=== PATIENT | male | born 1945 | race Caucasian/White ===

== ENCOUNTER 2018-03-09 01:09 | Emergency (ER) | payer MEDICARE, BC ==
[~2018-03-09] VITALS: Ht 188 cm; Wt 95.3 kg
--- NOTE | 2018-03-09 01:39 | NUR ---
MSE COMPLETED. PT D/C'D HOME, ACI GIVEN, PT AMBULATED W/O DIFF/TOOK ALL BELONGINGS.
[2018-03-09 01:40] VITALS: BP 152/71
== END 2018-03-09 01:41 | disposition home or self-care (01) ==
LOC: ER 01:13
DX: R21 Rash and other nonspecific skin eruption (principal); I10 Essential (primary) hypertension
CPT/HCPCS: 99281; A4663

== ENCOUNTER 2021-05-08 21:49 | Inpatient (IN) | payer MEDICARE, BC ==
[~2021-05-08] VITALS: Ht 185.4 cm; Wt 90.7 kg
[2021-05-08] MEDS ORDERED: NEOMY/BACITRA/POLYMYXIN B OINT UD PACKET TP ONE ×2 (22:30→22:50)
[2021-05-08 22:37] LABS: HEMATOCRIT 40.8 % (36.7-47.1); MEAN CORPUSCULAR VOLUME 84.6 fL (73.0-96.2); PLATELET COUNT (AUTO) 147 K/uL (152-348)
[2021-05-08 22:45] LABS: POTASSIUM 4.2 mmol/L (3.5-5.1)
[2021-05-08 22:51] LABS: BILIRUBIN,DIRECT 0.1 mg/dL (0.0-0.2); BILIRUBIN,TOTAL 0.4 mg/dL (0.2-1.0); TOTAL PROTEIN, SERUM 6.8 g/dL (6.4-8.2)
[2021-05-08 23:28] LABS: *BILIRUBIN,URIN NEGATIVE (NEGATIVE); *BLOOD, URINE TRACE (NEGATIVE); *CLARITY,URINE CLEAR (CLEAR); *COLOR,URINE YELLOW (YELLOW); *KETONES,URINE NEGATIVE (NEGATIVE); *UROBILINOGEN,URINE 0.2 E.U./dl (NORMAL); LEUKOCYTE ESTERASE ,URINE TRACE (NEGATIVE); NITRITE, URINE NEGATIVE (NEGATIVE); PH,URINE 5.5 (5.0-8.0); UGLUCOSE NEGATIVE (NEGATIVE)
[2021-05-08 23:37] LABS: BACTERIA,URINE NONE SEEN /HPF (NONE SEEN); RBC,URINE 0-3 /HPF (0-3); SQUAMOUS EPITHELIAL CELL,UR NONE SEEN /HPF (NONE SEEN); WBC,URINE 0-3 /HPF (0-3)
--- NOTE | 2021-05-09 02:11 | NUR ---
pt admitted to tele, transfer to floor pending on bed availability.
[2021-05-09] MEDS ORDERED: RAMI10CA69 PO (02:12)
[2021-05-09] MEDS ORDERED: metoprolol PO ×2 (02:12)
[2021-05-09] MEDS ORDERED: APIX5TAB PO (02:12)
[2021-05-09] MEDS ORDERED: ROSU20TA2 PO (02:12)
[2021-05-09] MEDS ORDERED: ESCI20TA PO (02:12)
[2021-05-09] MEDS ORDERED: Z GUARD REMEDY PASTE 57 GM TUBE TOP PRN (02:15)
[2021-05-09] MEDS ORDERED: ONDANSETRON 4 MG/2 ML VIAL IV PRN (02:15)
[2021-05-09] MEDS ORDERED: ACETAMINOPHEN 325 MG TABLET PO PRN (02:15)
[2021-05-09] MEDS ORDERED: MAGNESIUM HYDROXIDE 30 ML LIQUID UDC PO PRN (02:15)
--- NOTE | 2021-05-09 03:54 | NUR ---
pt care endorsed to sundeep Nieto. pt resting, arousable, no sign of distress.
[2021-05-09] MEDS ORDERED: METOPROLOL TARTRATE 50 MG TABLET PO ONE (04:30)
[2021-05-09] MEDS ORDERED: METOPROLOL TARTRATE 50 MG TABLET ONE (04:33)
[2021-05-09 05:56] LABS: BAND % (MANUAL) 6 % (0-10); EOSINOPHILS % (MANUAL) 2 % (0-8); LYMPHOCYTES % (MANUAL) 14 % (20-40); MONOCYTES % (MANUAL) 4 % (2-10); NEUTROPHILS % (MANUAL) 74 % (42-75)
--- NOTE | 2021-05-09 10:10 | NUR ---
PT WAS TRANSFERED TO TELEMETRY ROOM. REPORT WAS GIVEN TO RIDES ATTENDANT .
--- NOTE | 2021-05-09 10:11 | NUR ---
RECEIVED PATIENT FROM ED 75 YEARS OLD MALE BY W/CHAIR TO ROOM 329 WITH DX OF MECHANICAL FALL PLACED INTO BED FIXED AND MADE COMFORTABLE PATIENT IS ALERT AND ORIENTED DENIES DISCOMFORTS AT THIS TIME ORIENTED TO ROOM AND FACILITY PROTOCOL CALL LIGHTS AND PERSONAL BELONGINGS ARE WITHIN EASY REACH MADE COMFORTABLE WILL CONTINUE TO OBSERVE.
--- NOTE | 2021-05-09 11:22 | NUR ---
NEW ORDERS NOTED FROM DR MAHER AT THIS TIME
[2021-05-09 11:47] VITALS: BP 135/60
[2021-05-09 12:00] LABS: HEMATOCRIT 40.6 % (36.7-47.1); MEAN CORPUSCULAR HEMOGLOBIN 27.9 uug (23.8-33.4); MEAN CORPUSCULAR VOLUME 84.6 fL (73.0-96.2); PLATELET COUNT (AUTO) 143 K/uL (152-348)
[2021-05-09 12:05] LABS: CREATININE 0.8 mg/dL (0.6-1.3)
[2021-05-09 12:18] LABS: BILIRUBIN,TOTAL 0.6 mg/dL (0.2-1.0); PHOSPHOROUS 3.9 mg/dL (2.5-4.9); TOTAL PROTEIN, SERUM 6.7 g/dL (6.4-8.2)
[2021-05-09 12:19] LABS: THYROID STIMULATING HORMONE 1.152 mIU/mL (0.358-3.740)
[2021-05-09] MEDS: ESCITALOPRAM OXALATE 10 MG TABLET PO SCH (13:28)
--- NOTE | 2021-05-09 14:06 | NUR ---
DR MAHER HERE TO SEE PATIENT WITH NO NEW ORDERS AT THIS TIME
[2021-05-09 15:49] VITALS: BP 143/60
[2021-05-09 16:54] LABS: BAND % (MANUAL) 6 % (0-10); EOSINOPHILS % (MANUAL) 3 % (0-8); LYMPHOCYTES % (MANUAL) 13 % (20-40); METAMYELOCYTES % 3 % (0-1); MONOCYTES % (MANUAL) 15 % (2-10); NEUTROPHILS % (MANUAL) 60 % (42-75)
--- NOTE | 2021-05-09 18:00 | NUR ---
PATIENT MOVED TO ROOM 305 IN STABLE CONDITION DENIES DIZZY SPELLS ALERT ORIENTED AND COOPERATIVE AMBULATORY WITH STEADY GAIT TELE SR WITH NO ECTOPY NOT IN DISTRESS AT THIS TIME WILL CONTINUE TO OBSERVE.
--- NOTE | 2021-05-09 19:30 | NUR ---
PATIENT ALERT ORIENTED, NO SOB NO CHEST PAIN, TELE MONITOR SINUS RHTYHM AT THIS TIME, NO COMPLAIN OF PAIN, CALL LIGHT WITHIN REACH. CONT TO MONITOR.
[2021-05-09 20:10] VITALS: BP 142/73
[2021-05-09] MEDS ORDERED: Medication Not On Formulary EA (Rosuvastatin Calcium (Crestor) 20 MG) PO SCH (21:00)
[2021-05-09] MEDS ORDERED: RAMIPRIL 5 MG CAPSULE PO SCH (21:00)
[2021-05-09] MEDS ORDERED: ATORVASTATIN 40 MG TABLET PO SCH (21:00)
--- NOTE | 2021-05-09 21:00 | NUR ---
PATIENT REQUEST TO HAVE HIS LOPRESSOR MEDICATION, NOTIFY DR. ENGLISH PATIENT REQUEST, WITH ORDER.
[2021-05-09] MEDS: METOPROLOL TARTRATE 25 MG TABLET PO SCH (21:36)
[2021-05-10 00:09] VITALS: BP 116/65
[2021-05-10 04:35] VITALS: BP 125/65
--- NOTE | 2021-05-10 06:15 | NUR ---
PATIENT SLEEP MOST OF THE NIGHT, NO SOB NO CHEST PAIN, TELE MONITOR SINUS RYTHM, GOES TO BATHROOM FOR ELIMINATIONS, FREQUENT VISUAL CHECK DONE, CALL LIGHT WITHIN REACH.
[2021-05-10 06:18] LABS: HEMATOCRIT 42.4 % (36.7-47.1); MEAN CORPUSCULAR HEMOGLOBIN 27.8 uug (23.8-33.4); MEAN CORPUSCULAR VOLUME 84.6 fL (73.0-96.2); PLATELET COUNT (AUTO) 151 K/uL (152-348)
[2021-05-10 06:34] LABS: CREATININE 0.9 mg/dL (0.6-1.3); MAGNESIUM 1.8 mg/dL (1.8-2.4); PHOSPHOROUS 4.3 mg/dL (2.5-4.9); POTASSIUM 4.2 mmol/L (3.5-5.1)
--- NOTE | 2021-05-10 07:30 | NUR ---
RECEIVED PATIENT IN ROOM AWAKE ALERT AND ORIENTED ON ROOM AIR WITH NO SHORTNESS OF BREATH AT THIS TIME DENIES PAIN OR DISCOMFORTS MULTIPLE ABRASION AREAS WITH DRESSING INTACT WITH NO DRAINAGE TELE IS SR CALL LIGHTS AND PERSONAL BELONGINGS ARE WITHIN EASY REACH AT THIS TIME WILL CONTINUE TO OBSERVE PROVIDE COMFORT/SAFE AND THERAPEUTIC ENVIRONMENT AT ALL TIMES.
[2021-05-10] MEDS: ESCITALOPRAM OXALATE 10 MG TABLET PO SCH (08:16)
[2021-05-10] MEDS: METOPROLOL TARTRATE 25 MG TABLET PO SCH (08:19)
[2021-05-10] MEDS ORDERED: Medication Not On Formulary EA (Escitalopram Oxalate (Lexapro) 20 MG) PO SCH (09:00)
[2021-05-10] MEDS ORDERED: NEOMY/BACITRAC/POLYMI OINT 28.35 GM TUBE TOP SCH (09:00)
[2021-05-10] MEDS ORDERED: METO25TA6 PO (11:49)
[2021-05-10 12:00] VITALS: BP 125/64
--- NOTE | 2021-05-10 12:30 | NUR ---
DR MAHER HERE SEEN PATIENT WITH ORDER TO DISCHARGE HIM HOME TODAY PATIENT AWARE AND STATED THAT HIS WILL BE ABLE TO PICK HIM UP THIS AFTERNOON.
[2021-05-10 14:38] LABS: BAND % (MANUAL) 2 % (0-10); EOSINOPHILS % (MANUAL) 2 % (0-8); LYMPHOCYTES % (MANUAL) 12 % (20-40); MONOCYTES % (MANUAL) 14 % (2-10); NEUTROPHILS % (MANUAL) 70 % (42-75)
--- NOTE | 2021-05-10 15:00 | NUR ---
PATIENT DISCHARGED PICKED UP BY HIS IN SATISFACTORY CONDITION WITH DISCHARGE INSTRUCTIONS AND PATIENT INSTRUCTED ON THE CHANGE IN THE DOSE OF HIS METOPROLOL AND STOPPING HIS CHOLESTEROL MEDICATIONS PER DR MAHER AND TO FOLLOW UP WITH HIS PRIMARY DOCTOR WITHIN ONE WEEK AND HE EXPRESSED UNDERSTANDING.
== END 2021-05-10 15:00 | disposition home or self-care (01) | DRG 605 ==
LOC: ER 21:52 → TELE3 05-09 08:56
PROVIDERS: ADMIT Internal Medicine; ATTEND Internal Medicine
DX: S00.03XA Contusion of scalp, initial encounter (principal); E78.5 Hyperlipidemia, unspecified; M50.30 Other cervical disc degeneration, unspecified cervical region; J32.9 Chronic sinusitis, unspecified; W01.0XXA Fall on same level from slipping, tripping and stumbling without subsequent striking against object, initial encounter; S00.31XA Abrasion of nose, initial encounter; Y92.008 Other place in unspecified non-institutional (private) residence as the place of occurrence of the external cause; Z79.01 Long term (current) use of anticoagulants; I45.10 Unspecified right bundle-branch block; I10 Essential (primary) hypertension; I48.0 Paroxysmal atrial fibrillation; Z20.822 Contact with and (suspected) exposure to COVID-19
CPT/HCPCS: 36415; 70030-TC; 70450; 70486; 71045; 72125; 83735; 84100; 84443; 85025; 85730; 93005; 97161; A4663; G0378